=== PATIENT | female | born 1940 | race Caucasian/White ===

== ENCOUNTER → 2019-08-05 | Outpatient (CLI) | payer MEDICARE, OTHER ==
--- NOTE | 2019-08-05 15:20 | RAD ---
2 views of the left knee without comparison for left knee pain. FINDINGS: There is no fracture, dislocation, or acute osseous abnormality identified. There is early osteoarthritis, with narrowing osteophyte formation about the medial and patellofemoral joint compartments. May be a small suprapatellar joint effusion is well. IMPRESSION: 1. Degenerative changes of the left knee with no acute osseous abnormality. Electronically signed by: Cody Cervantes MD (08/05/2019 3:18 PM) [id number]
--- NOTE | 2019-08-05 15:20 | RAD ---
PA and lateral chest x-ray without comparison for bilateral knee pain and cough. FINDINGS: The lungs are clear. The cardiomediastinum is grossly unremarkable. There is mild atherosclerosis of the aortic arch. 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 Prior left shoulder prosthesis is noted. Small calcified anterior granuloma is seen on the lateral view. IMPRESSION: 1. No acute cardiopulmonary abnormality. Electronically signed by: Cody Cervantes MD (08/05/2019 3:17 PM) [id number]
== END ==
LOC: PMG 11:04
PROVIDERS: ATTEND Physician Assistant
DX: M17.12 Unilateral primary osteoarthritis, left knee (principal); R05 Cough; I70.0 Atherosclerosis of aorta; M40.294 Other kyphosis, thoracic region; M25.762 Osteophyte, left knee
CPT/HCPCS: 71046; 73560